=== PATIENT | male | born 1940 | race Caucasian/White ===

== ENCOUNTER 2017-10-02 15:31 | Emergency (ER) | payer MEDICARE, MEDICAID ==
[~2017-10-02] VITALS: Ht 172.7 cm; Wt 80.0 kg
[2017-10-02] MEDS ORDERED: TRAMADOL 50MG TABLET PO ONE (17:45)
[2017-10-02 22:55] VITALS: BP 111/77
== END 2017-10-02 22:54 | disposition home or self-care (01) ==
LOC: ER 16:23
DX: M54.5 Low back pain (principal); G89.29 Other chronic pain; E11.9 Type 2 diabetes mellitus without complications; I10 Essential (primary) hypertension; Z88.8 Allergy status to other drugs, medicaments and biological substances
CPT/HCPCS: 82962; 99283

== ENCOUNTER 2017-10-09 00:50 | Emergency (ER) | payer MEDICARE, MEDICAID ==
[~2017-10-09] VITALS: Ht 175.3 cm; Wt 82.0 kg
[2017-10-09] MEDS ORDERED: IBUPROFEN 600MG TABLET PO STA (01:17)
[2017-10-09 01:45] LABS: BASOPHILS % 0.6 % (0.0-2.0); CHLORIDE 113 mEq/L (98-107); EOSINOPHILS % 2.8 % (0.0-5.0); HEMATOCRIT. 38.5 % (42.0-52.0); HEMOGLOBIN. 12.5 g/dL (14.0-18.0); LYMPHOCYTES % 17.1 % (20.0-50.0); MEAN CORPUSCULAR HEMOGLOBIN 27.5 pg (28.0-32.0); MEAN CORPUSCULAR VOLUME 84.9 fL (80.0-94.0); MEAN PLATELET VOLUME 7.9 fl (7.4-10.4); MONOCYTES % 13.8 % (2.0-8.0); NEUTROPHILS % 65.7 % (40.0-76.0); PLATELET 187 x1000/uL (130-400); RED BLOOD CELL COUNT 4.53 mill/uL (4.7-6.1); RED CELL DISTRIBUTION WIDTH 14.1 % (11.6-14.6)
[2017-10-09 03:27] LABS: CLARITY URINE CLEAR (CLEAR); COLOR URINE YELLOW (YELLOW); KETONES URINE NEGATIVE (NEGATIVE); LEUKOCYTE ESTERASE URINE NEGATIVE (NEGATIVE); NITRITE URINE NEGATIVE (NEGATIVE); OCCULT BLOOD URINE NEGATIVE (NEGATIVE); PH URINE 6.5 (4.5-8.0); PROTEIN URINE 2+ (NEGATIVE)
[2017-10-09 03:30] VITALS: BP 150/109
== END 2017-10-09 05:23 | disposition home or self-care (01) ==
LOC: ER 03:44
DX: M54.5 Low back pain (principal); G89.29 Other chronic pain; I10 Essential (primary) hypertension; E11.9 Type 2 diabetes mellitus without complications; G40.909 Epilepsy, unspecified, not intractable, without status epilepticus; F31.9 Bipolar disorder, unspecified
CPT/HCPCS: 36415; 80053; 81001; 85025; 99284

== ENCOUNTER 2017-12-08 20:15 | Emergency (ER) | payer MEDICARE, MEDICAID ==
[~2017-12-08] VITALS: Ht 172.7 cm; Wt 77.0 kg
[2017-12-09] MEDS ORDERED: PERMETHRIN 5% CREAM 60GM TOP ONE (01:45)
[2017-12-09 09:34] VITALS: BP 126/87
[2017-12-22] MEDS ORDERED: TOPI100T37 PO (17:05)
[2017-12-22] MEDS ORDERED: DOCU-138 PO (17:05)
[2017-12-22] MEDS ORDERED: DIVA500T51 PO (17:05)
[2017-12-22] MEDS ORDERED: OLAN5TAB26 PO (17:05)
[2017-12-22] MEDS ORDERED: TRAM50TA3 PO (17:05)
[2017-12-22] MEDS ORDERED: ESCI10TA54 PO (17:05)
[2017-12-22] MEDS ORDERED: LINA5TAB PO (17:05)
== END 2017-12-09 11:52 | disposition home or self-care (01) ==
LOC: ER 20:50
DX: B86 Scabies (principal); I10 Essential (primary) hypertension; E11.9 Type 2 diabetes mellitus without complications; Z88.8 Allergy status to other drugs, medicaments and biological substances
CPT/HCPCS: 99282; 99283

== ENCOUNTER 2017-12-16 03:45 | Emergency (ER) | payer MEDICARE, MEDICAID ==
[~2017-12-16] VITALS: Ht 170.2 cm; Wt 69.0 kg
[2017-12-16 04:15] VITALS: BP 164/96
== END 2017-12-16 05:56 | disposition home or self-care (01) ==
LOC: ER 03:45
DX: B86 Scabies (principal); I10 Essential (primary) hypertension; F17.200 Nicotine dependence, unspecified, uncomplicated
CPT/HCPCS: 99283

== ENCOUNTER 2017-12-27 13:51 | Emergency (ER) | payer MEDICARE, MEDICAID ==
[~2017-12-27] VITALS: Ht 180.3 cm; Wt 91.0 kg
[~2017-12-27 13:51] MED LIST: DIVA500T51 PO; DOCU-138 PO; ESCI10TA54 PO; LINA5TAB PO; OLAN5TAB26 PO; TOPI100T37 PO; TRAM50TA3 PO
[2017-12-27] MEDS ORDERED: TETANUS, DIPHTHERIA, PERTUSSIS VAC/PF 0.5ML (>7YR OLD) IM ONE (15:00)
[2017-12-27 15:30] LABS: BASOPHILS % 0.6 % (0.0-2.0); EOSINOPHILS % 4.8 % (0.0-5.0); HEMATOCRIT. 39.6 % (42.0-52.0); HEMOGLOBIN. 13.2 g/dL (14.0-18.0); MEAN CORPUSCULAR VOLUME 84.1 fL (80.0-94.0); MEAN PLATELET VOLUME 8.3 fl (7.4-10.4); MONOCYTES % 9.8 % (2.0-8.0); NEUTROPHILS % 70.8 % (40.0-76.0); PLATELET 255 x1000/uL (130-400); RED BLOOD CELL COUNT 4.72 mill/uL (4.7-6.1); RED CELL DISTRIBUTION WIDTH 15.8 % (11.6-14.6)
[2017-12-27 15:33] LABS: CHLORIDE 110 mEq/L (98-107)
[2017-12-27 15:39] LABS: ETHANOL BLOOD < 10 mg/dL
[2017-12-27 20:19] LABS: CLARITY URINE CLEAR (CLEAR); COLOR URINE YELLOW (YELLOW); KETONES URINE NEGATIVE (NEGATIVE); LEUKOCYTE ESTERASE URINE NEGATIVE (NEGATIVE); NITRITE URINE NEGATIVE (NEGATIVE); OCCULT BLOOD URINE NEGATIVE (NEGATIVE); PH URINE 5.5 (4.5-8.0); PROTEIN URINE 2+ (NEGATIVE); SPECIFIC GRAVITY URINE 1.022 (1.005-1.030); UROBILINOGEN URINE 0.2 E.U./dL (0.2-1.0)
[2017-12-27 20:32] LABS: *AMPHETAMINES SCREEN URINE NEGATIVE (NEGATIVE); *BARBITURATES SCREEN URINE NEGATIVE (NEGATIVE)
[2017-12-27 20:33] LABS: *BENZODIAZEPINES SCREEN URINE NEGATIVE (NEGATIVE); *COCAINE SCREEN URINE NEGATIVE (NEGATIVE); CANNABINOID URINE SCREEN NEGATIVE (NEGATIVE); METHADONE URINE SCREEN NEGATIVE (NEGATIVE); OPIATES URINE SCREEN NEGATIVE (NEGATIVE); PHENCYCLIDINE URINE SCREEN NEGATIVE (NEGATIVE)
[2017-12-28 01:44] VITALS: BP 143/81
== END 2017-12-28 01:45 | disposition home or self-care (01) ==
LOC: ER 14:45
DX: S02.2XXA Fracture of nasal bones, initial encounter for closed fracture (principal); S01.80XA Unspecified open wound of other part of head, initial encounter; S80.811A Abrasion, right lower leg, initial encounter; E11.9 Type 2 diabetes mellitus without complications; R56.9 Unspecified convulsions; E78.00 Pure hypercholesterolemia, unspecified; I10 Essential (primary) hypertension; J44.9 Chronic obstructive pulmonary disease, unspecified; W01.0XXA Fall on same level from slipping, tripping and stumbling without subsequent striking against object, initial encounter; Y93.E1 Activity, personal bathing and showering; Y92.89 Other specified places as the place of occurrence of the external cause; Y99.8 Other external cause status
CPT/HCPCS: 36415; 70450; 71045; 72125; 73030; 80053; 80165; 80305; 81003; 84484; 85025; 90471; 90715; 93005; 99285; G0482

== ENCOUNTER 2018-06-12 21:19 | Inpatient (IN) | payer MEDICARE, MEDICAID ==
[~2018-06-12] VITALS: Ht 175.3 cm; Wt 67.6 kg
[2018-06-12 21:00] VITALS: BP 130/78
[2018-06-12] MEDS ORDERED: DOCUSATE SODIUM 100MG CAPSULE PO PRN (23:15)
[2018-06-12] MEDS ORDERED: MAGNESIUM/ALUMINUM HYDROXIDE/SIMETHICONE 30ML UDC PO PRN (23:15)
[2018-06-12] MEDS ORDERED: CLONIDINE 0.1MG TABLET PO PRN (23:15)
[2018-06-12] MEDS ORDERED: ACETAMINOPHEN 325MG TABLET PO PRN (23:15)
[2018-06-12] MEDS ORDERED: GUAIFENESIN 200MG/10ML SUGAR FREE UDC PO PRN (23:15)
[2018-06-12] MEDS ORDERED: ONDANSETRON HCL 4MG/2ML INJ IV PRN (23:15)
[2018-06-13] VITALS: BP 151/85
[2018-06-13] MEDS ORDERED: DEXTROSE 50% WATER 50ML SYRINGE IV PRN (02:00)
[2018-06-13] MEDS: DEXT 5%/0.45% NACL 1000ML 1,000 ML IV SCH ×2 (02:37→16:02)
[2018-06-13 04:00] VITALS: BP 129/86
[2018-06-13] MEDS: BLOOD SUGAR DIAGNOSTIC STRIP TEST SCH ×4 (07:33→20:11)
[2018-06-13] MEDS: INSULIN LISPRO 100 UNITS/ML SUBCUT SCH ×4 (07:50→20:11)
[2018-06-13 08:00] VITALS: BP 139/81
[2018-06-13] MEDS: ASPIRIN 81MG EC TABLET PO SCH (08:32)
[2018-06-13] MEDS: AMLODIPINE 10MG TABLET PO SCH (08:35)
[2018-06-13 12:00] VITALS: BP 110/69
[2018-06-13 13:20] LABS: BASOPHILS % 0.5 % (0.0-2.0); EOSINOPHILS % 2.1 % (0.0-5.0); HEMATOCRIT. 39.8 % (42.0-52.0); HEMOGLOBIN. 13.1 g/dL (14.0-18.0); LYMPHOCYTES % 16.3 % (20.0-50.0); MEAN CORPUSCULAR VOLUME 84.8 fL (80.0-94.0); MEAN PLATELET VOLUME 7.7 fl (7.4-10.4); MONOCYTES % 11.7 % (2.0-8.0); NEUTROPHILS % 69.4 % (40.0-76.0); PLATELET 188 x1000/uL (130-400); RED BLOOD CELL COUNT 4.69 mill/uL (4.7-6.1); RED CELL DISTRIBUTION WIDTH 15.6 % (11.6-14.6)
[2018-06-13 13:28] LABS: CHLORIDE 111 mEq/L (98-107)
[2018-06-13 13:37] LABS: T4 FREE 0.79 ng/dL (0.76-1.46)
[2018-06-13] MEDS: ENOXAPARIN 40MG/0.4ML SYR SUBCUT SCH (14:00)
[2018-06-13 16:00] VITALS: BP 121/75
[2018-06-13 20:00] VITALS: BP 132/65
[2018-06-14] VITALS: BP 129/73
[2018-06-14 04:00] VITALS: BP 135/78
[2018-06-14] MEDS: BLOOD SUGAR DIAGNOSTIC STRIP TEST SCH ×4 (06:39→21:00)
[2018-06-14] MEDS: DEXT 5%/0.45% NACL 1000ML 1,000 ML IV SCH ×2 (06:39→18:45)
[2018-06-14] MEDS: INSULIN LISPRO 100 UNITS/ML SUBCUT SCH ×4 (07:50→21:00)
[2018-06-14 08:00] VITALS: BP 146/75
[2018-06-14] MEDS: ASPIRIN 81MG EC TABLET PO SCH (08:33)
[2018-06-14] MEDS: AMLODIPINE 10MG TABLET PO SCH (08:33)
[2018-06-14] MEDS: ENOXAPARIN 40MG/0.4ML SYR SUBCUT SCH (09:00)
[2018-06-14] MEDS: BUDESONIDE 0.5MG/2ML NEB HHN SCH (10:35)
[2018-06-14 11:17] LABS: BASOPHILS % 0.4 % (0.0-2.0); HEMATOCRIT. 36.8 % (42.0-52.0); LYMPHOCYTES % 11.7 % (20.0-50.0); MEAN CORPUSCULAR HEMOGLOBIN 27.5 pg (28.0-32.0); MEAN CORPUSCULAR VOLUME 84.4 fL (80.0-94.0); MEAN PLATELET VOLUME 8.1 fl (7.4-10.4); MONOCYTES % 11.1 % (2.0-8.0); NEUTROPHILS % 73.8 % (40.0-76.0); PLATELET 189 x1000/uL (130-400); RED BLOOD CELL COUNT 4.36 mill/uL (4.7-6.1); RED CELL DISTRIBUTION WIDTH 15.8 % (11.6-14.6)
[2018-06-14 11:59] LABS: CHLORIDE 110 mEq/L (98-107)
[2018-06-14 16:00] VITALS: BP 114/71
[2018-06-14 20:00] VITALS: BP 148/80
[2018-06-15] VITALS: BP_SYST 112; BP_SYST 135; BP_DIAS 59; BP_DIAS 79
[2018-06-15 04:00] VITALS: BP 139/82
[2018-06-15] MEDS: BLOOD SUGAR DIAGNOSTIC STRIP TEST SCH ×4 (07:20→20:58)
[2018-06-15] MEDS: INSULIN LISPRO 100 UNITS/ML SUBCUT SCH ×4 (07:50→20:58)
[2018-06-15 08:00] VITALS: BP 130/73
[2018-06-15] MEDS: AMLODIPINE 10MG TABLET PO SCH ×2 (08:23→08:38)
[2018-06-15] MEDS: ASPIRIN 81MG EC TABLET PO SCH ×2 (08:23→08:38)
[2018-06-15] MEDS: DEXT 5%/0.45% NACL 1000ML 1,000 ML IV SCH (08:24)
[2018-06-15] MEDS: ENOXAPARIN 40MG/0.4ML SYR SUBCUT SCH (08:24)
[2018-06-15] MEDS: BUDESONIDE 0.5MG/2ML NEB HHN SCH (10:35)
[2018-06-15 12:00] VITALS: BP 130/58
[2018-06-15] MEDS: IPRATROPIUM/ALBUTEROL 0.5-3(2.5)MG/3ML NEB HHN PRN (13:35)
[2018-06-15 20:00] VITALS: BP 124/75
[2018-06-15] MEDS ORDERED: LORAZEPAM 2MG/ML CPJ IV PRN (23:00)
[2018-06-16] VITALS: BP 131/69
[2018-06-16] MEDS: BUDESONIDE 0.5MG/2ML NEB HHN SCH ×3 (00:17→21:59)
[2018-06-16] MEDS: IPRATROPIUM/ALBUTEROL 0.5-3(2.5)MG/3ML NEB HHN PRN ×4 (00:17→17:34)
[2018-06-16] MEDS: DEXT 5%/0.45% NACL 1000ML 1,000 ML IV SCH ×2 (04:24→10:00)
[2018-06-16] MEDS: BLOOD SUGAR DIAGNOSTIC STRIP TEST SCH ×4 (06:39→21:00)
[2018-06-16] MEDS: INSULIN LISPRO 100 UNITS/ML SUBCUT SCH ×4 (07:50→21:00)
[2018-06-16 08:00] VITALS: BP 149/78
[2018-06-16] MEDS: ASPIRIN 81MG EC TABLET PO SCH (08:59)
[2018-06-16] MEDS: AMLODIPINE 10MG TABLET PO SCH (08:59)
[2018-06-16] MEDS: ENOXAPARIN 40MG/0.4ML SYR SUBCUT SCH (09:00)
[2018-06-16 12:00] VITALS: BP 112/85
[2018-06-16 16:36] VITALS: BP 128/76
[2018-06-16 20:00] VITALS: BP 135/90
[2018-06-16] MEDS ORDERED: ATORVASTATIN CALCIUM 20MG TABLET PO SCH (21:00)
== END 2018-06-16 23:00 | DRG 641 ==
LOC: 6EST 21:19
PROVIDERS: ADMIT Hospitalist; ATTEND Hospitalist
DX: R62.7 Adult failure to thrive (principal); E44.0 Moderate protein-calorie malnutrition; D64.9 Anemia, unspecified; I10 Essential (primary) hypertension; E11.9 Type 2 diabetes mellitus without complications; G40.909 Epilepsy, unspecified, not intractable, without status epilepticus; J44.9 Chronic obstructive pulmonary disease, unspecified; Z87.891 Personal history of nicotine dependence; Z68.22 Body mass index [BMI] 22.0-22.9, adult; Z88.8 Allergy status to other drugs, medicaments and biological substances
CPT/HCPCS: 36415; 71046; 82962; 83735; 84439; 84443; 84484; 93970; 94640; J1650; J2060; J3490; J7620; J7626

== ENCOUNTER 2018-09-19 14:04 | Inpatient (IN) | payer MEDICARE, MEDICAID ==
[~2018-09-19] VITALS: Ht 175.3 cm; Wt 87.1 kg
[2018-09-19 16:33] LABS: BASOPHILS % 0.5 % (0.0-2.0); EOSINOPHILS % 1.4 % (0.0-5.0); HEMATOCRIT. 43.6 % (42.0-52.0); HEMOGLOBIN. 14.1 g/dL (14.0-18.0); LYMPHOCYTES % 13.1 % (20.0-50.0); MEAN CORPUSCULAR HEMOGLOBIN 27.6 pg (28.0-32.0); MEAN CORPUSCULAR VOLUME 85.7 fL (80.0-94.0); MEAN PLATELET VOLUME 8.4 fl (7.4-10.4); PLATELET 216 x1000/uL (130-400); RED BLOOD CELL COUNT 5.09 mill/uL (4.7-6.1); RED CELL DISTRIBUTION WIDTH 14.5 % (11.6-14.6)
[2018-09-19 16:37] LABS: CHLORIDE 114 mEq/L (98-107)
[2018-09-19 16:39] LABS: INR 1.1; PROTHROMBIN TIME 11.3 sec (9.1-11.1)
[2018-09-19] MEDS ORDERED: ONDANSETRON HCL 4MG/2ML INJ IV PRN (18:00)
[2018-09-19] MEDS ORDERED: ACETAMINOPHEN 650MG SUPP PR PRN (18:00)
[2018-09-19] MEDS ORDERED: LORAZEPAM 2MG/ML CPJ IV PRN (18:00)
[2018-09-19] MEDS ORDERED: LIDOCAINE HCL 2% JELLY 5ML TOP ONE (18:15)
[2018-09-19 19:07] LABS: CLARITY URINE CLEAR (CLEAR); COLOR URINE DARK YELLOW (YELLOW); KETONES URINE TRACE (NEGATIVE); LEUKOCYTE ESTERASE URINE NEGATIVE (NEGATIVE); NITRITE URINE NEGATIVE (NEGATIVE); OCCULT BLOOD URINE NEGATIVE (NEGATIVE); PROTEIN URINE 2+ (NEGATIVE); SPECIFIC GRAVITY URINE 1.028 (1.005-1.030)
[2018-09-19] MEDS ORDERED: ENOXAPARIN 100MG/ML SYR SUBCUT ONE (22:00)
[2018-09-19 23:08] VITALS: BP 138/79
[2018-09-20] VITALS: BP 138/79
[2018-09-20] MEDS: DEXT 5%/0.45% NACL 1000ML 1,000 ML IV SCH ×2 (03:43→12:05)
[2018-09-20 04:00] VITALS: BP 130/77
[2018-09-20 08:00] VITALS: BP 118/70
[2018-09-20] MEDS ORDERED: ENOXAPARIN 40MG/0.4ML SYR SUBCUT SCH (09:00)
[2018-09-20 10:24] LABS: BASOPHILS % 0.5 % (0.0-2.0); EOSINOPHILS % 1.3 % (0.0-5.0); HEMATOCRIT. 40.7 % (42.0-52.0); HEMOGLOBIN. 13.2 g/dL (14.0-18.0); LYMPHOCYTES % 13.2 % (20.0-50.0); MEAN CORPUSCULAR HEMOGLOBIN 27.7 pg (28.0-32.0); MEAN CORPUSCULAR VOLUME 85.7 fL (80.0-94.0); MEAN PLATELET VOLUME 8.2 fl (7.4-10.4); MONOCYTES % 12.8 % (2.0-8.0); NEUTROPHILS % 72.2 % (40.0-76.0); PLATELET 196 x1000/uL (130-400); RED BLOOD CELL COUNT 4.74 mill/uL (4.7-6.1); RED CELL DISTRIBUTION WIDTH 14.4 % (11.6-14.6)
[2018-09-20 10:36] LABS: CHLORIDE 115 mEq/L (98-107)
[2018-09-20 12:26] VITALS: BP 144/101
[2018-09-20 16:00] VITALS: BP 140/88
[2018-09-20 20:00] VITALS: BP 135/87
[2018-09-20] MEDS: PANTOPRAZOLE SODIUM 40 MG/VIAL IV SCH (21:39)
[2018-09-21] VITALS: BP 129/84
[2018-09-21] MEDS: DEXT 5%/0.45% NACL 1000ML 1,000 ML IV SCH ×2 (02:42→18:13)
[2018-09-21 04:00] VITALS: BP 146/83
[2018-09-21 08:00] VITALS: BP 159/77
[2018-09-21] MEDS: PANTOPRAZOLE SODIUM 40 MG/VIAL IV SCH ×2 (09:00→22:09)
[2018-09-21] MEDS ORDERED: TOPIRAMATE 100MG TABLET PO SCH (10:30)
[2018-09-21] MEDS: DIVALPROEX SODIUM 500MG ER TABLET PO SCH ×2 (10:30→17:00)
[2018-09-21] MEDS: CITALOPRAM HYDROBROMIDE 10MG TABLET PO SCH (11:44)
[2018-09-21] MEDS: LINAGLIPTIN 5MG TABLET PO SCH (11:45)
[2018-09-21 12:00] VITALS: BP 117/64
[2018-09-21 16:00] VITALS: BP 150/86
[2018-09-21 20:00] VITALS: BP 161/85
[2018-09-21] MEDS: TOPIRAMATE 100MG TABLET PO SCH (22:21)
[2018-09-22] VITALS (7 sets, daily range): BP systolic 112–147; BP diastolic 58–90
[2018-09-22] MEDS: LINAGLIPTIN 5MG TABLET PO SCH (09:00)
[2018-09-22] MEDS: DIVALPROEX SODIUM 500MG ER TABLET PO SCH ×2 (09:00→17:00)
[2018-09-22] MEDS: PANTOPRAZOLE SODIUM 40 MG/VIAL IV SCH ×2 (09:00→20:50)
[2018-09-22] MEDS: CITALOPRAM HYDROBROMIDE 10MG TABLET PO SCH (09:00)
[2018-09-22] MEDS: DEXT 5%/0.45% NACL 1000ML 1,000 ML IV SCH (09:01)
[2018-09-22] MEDS: TOPIRAMATE 100MG TABLET PO SCH (20:49)
[2018-09-22] MEDS ORDERED: ATORVASTATIN CALCIUM 20MG TABLET PO SCH (21:00)
== END 2018-09-22 23:20 | DRG 641 ==
LOC: ER 14:04 → EDBEDREQ 14:26 → 6EST 14:26 → EDBEDREQSVC 14:26 → EDBEDREQ 17:01 → ENRESERV 20:28 → 6EST 23:23
PROVIDERS: ADMIT Hospitalist; ATTEND Hospitalist
DX: E86.0 Dehydration (principal); E44.0 Moderate protein-calorie malnutrition; E11.9 Type 2 diabetes mellitus without complications; I10 Essential (primary) hypertension; F31.9 Bipolar disorder, unspecified; F41.9 Anxiety disorder, unspecified; J44.9 Chronic obstructive pulmonary disease, unspecified; F20.9 Schizophrenia, unspecified; R13.10 Dysphagia, unspecified; Z86.73 Personal history of transient ischemic attack (TIA), and cerebral infarction without residual deficits; Z68.28 Body mass index [BMI] 28.0-28.9, adult; Z79.899 Other long term (current) drug therapy; Z88.8 Allergy status to other drugs, medicaments and biological substances
CPT/HCPCS: 36415; 71045; 80165; 83880; 84134; 84484; 92610; 93005; 93970; 99285; C9113; J1650; A4315